=== PATIENT | female | born 1950 | race Two or more races ===

== ENCOUNTER 2017-02-07 17:41 | Emergency (ER) | payer MEDICARE, OTHER ==
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
== END 2017-02-07 19:39 | disposition disaster alternative care site (69) ==
LOC: GMED 17:41
DX: G54.6 Phantom limb syndrome with pain (principal); I10 Essential (primary) hypertension; E78.00 Pure hypercholesterolemia, unspecified; K21.9 Gastro-esophageal reflux disease without esophagitis; Z88.5 Allergy status to narcotic agent; Z90.49 Acquired absence of other specified parts of digestive tract; Z90.710 Acquired absence of both cervix and uterus; Z98.890 Other specified postprocedural states; Z79.899 Other long term (current) drug therapy; Z89.202 Acquired absence of left upper limb, unspecified level
CPT/HCPCS: J2270